=== PATIENT | male | born 1970 | race Caucasian/White ===

== ENCOUNTER 2017-05-08 19:46 | Emergency (ER) | payer OTHER, SELFPAY ==
[~2017-05-08] VITALS: Ht 190.5 cm; Wt 113.6 kg
[2017-05-08] MEDS ORDERED: CEPHALEXIN 500 MG CAP PO ONE (22:15)
[2017-05-08] MEDS ORDERED: methylPREDNISolone INJ 125 MG/2 ML VIAL (J2930) IM ONE (22:15)
[2017-05-08] MEDS ORDERED: PRED20TA PO (22:20)
[2017-05-08] MEDS ORDERED: LISI10TA4 PO (22:21)
[2017-05-08] MEDS ORDERED: KEFL500C17 PO (22:21)
[2017-05-08] MEDS ORDERED: LISINOPRIL 10 MG TAB PO ONE (22:30)
[2017-05-08 22:43] VITALS: BP 180/110
[2017-05-08 23:09] VITALS: BP 118/113
== END 2017-05-08 23:10 | disposition home or self-care (01) ==
LOC: M ED 19:46
DX: L03.032 Cellulitis of left toe (principal); L23.7 Allergic contact dermatitis due to plants, except food; I10 Essential (primary) hypertension; R00.2 Palpitations; F17.210 Nicotine dependence, cigarettes, uncomplicated
CPT/HCPCS: 96372; 99282; J2930

== ENCOUNTER 2017-10-07 13:48 | Emergency (ER) | payer MEDICAID, OTHER, SELFPAY ==
[2017-10-07] MEDS: KETOROLAC 30 MG/ML VIAL (J1885) IV (14:52)
[2017-10-07] MEDS: NS 1,000 ML IV (14:52)
[2017-10-07] MEDS: diphenhydrAMINE INJ 50MG/ML VIAL (J1200) IV (14:53)
[2017-10-07] MEDS: METOCLOPRAMIDE INJ 10MG/2ML VIAL (J2765) IV (14:56)
== END 2017-10-07 16:28 | disposition home or self-care (01) ==
LOC: M ED 13:48
DX: G44.209 Tension-type headache, unspecified, not intractable (principal); Z87.820 Personal history of traumatic brain injury; F17.200 Nicotine dependence, unspecified, uncomplicated
CPT/HCPCS: J1200

== ENCOUNTER 2017-10-08 13:00 | Emergency (ER) | payer MEDICAID | END 2017-10-08 15:26 | disposition left against medical advice (07) | LOC: M ED 13:00 | DX: Z53.21 Procedure and treatment not carried out due to patient leaving prior to being seen by health care provider (principal) ==

== ENCOUNTER 2017-10-08 15:54 | Emergency (ER) | payer MEDICAID ==
[2017-10-08] MEDS: diphenhydrAMINE INJ 50MG/ML VIAL (J1200) IV (18:44)
[2017-10-08] MEDS: METOCLOPRAMIDE 10 MG TAB PO (18:44)
[2017-10-08] MEDS: KETOROLAC 30 MG/ML VIAL (J1885) IV (18:45)
== END 2017-10-08 19:29 | disposition home or self-care (01) ==
LOC: M ED 15:54
DX: G44.209 Tension-type headache, unspecified, not intractable (principal); I10 Essential (primary) hypertension; F17.200 Nicotine dependence, unspecified, uncomplicated
CPT/HCPCS: J1200

== ENCOUNTER → 2017-10-13 | Outpatient (CLI) | payer MEDICAID | LOC: M LAB 14:12 | DX: I10 Essential (primary) hypertension (principal) | CPT/HCPCS: 93005 ==

== ENCOUNTER 2017-10-16 16:32 | Emergency (ER) | payer MEDICAID ==
[2017-10-16 18:48] LABS: BASO # 0.1 10^3/uL (0.0-0.2); BASO % 0.7 % (0.0-1.0); EOS # 0.4 10^3/uL (0.0-0.50); EOS % 3.4 % (0.0-3.0); HEMATOCRIT 52.4 % (42.0-52.0); HEMOGLOBIN 17.8 g/dl (14.0-18.0); IMMATURE GRANULOCYTE % 0.2 % (0-3.0); LYMPH # 3.4 10^3/uL (1.5-4.5); LYMPH % 29.1 % (24.0-44.0); MEAN CORPUSCULAR VOLUME 91.1 fl (80.0-96.0); MONO # 0.9 10^3/uL (0.0-0.8); MONO % 7.2 % (0.0-5.0); NEUTROPHILS % 59.4 % (36.0-66.0); PLATELET COUNT, AUTOMATED 259 10^3/uL (150-450); RED BLOOD COUNT 5.75 10^6/uL (4.30-6.10); RED CELL DISTRIBUTION WIDTH 13.2 % (11.5-14.5); WHITE BLOOD COUNT 11.8 10^3/uL (4.0-10.0)
[2017-10-16 19:29] LABS: ALBUMIN 4.5 GM/DL (3.2-5.2); ALBUMIN/GLOBULIN RATIO 1.13 (1.00-1.93); ALKALINE PHOSPHATASE 88 U/L (45-117); ALT/SGPT 41 U/L (12-78); ANION GAP 6 MEQ/L (8-16); AST/SGOT 16 U/L (7-37); BILIRUBIN,TOTAL 0.3 MG/DL (0.2-1.0); BLOOD UREA NITROGEN 18 MG/DL (7-18); CALCIUM LEVEL 9.7 MG/DL (8.5-10.1); CARBON DIOXIDE LEVEL 32 MEQ/L (21-32); CHLORIDE LEVEL 105 MEQ/L (98-107); CK-MB VALUE MASS 1.3 NG/ML (<3.6); CPK CREATINE PHOSPHOKINASE 130 U/L (39-308); CREATININE FOR GFR 1.07 MG/DL (0.70-1.30); GLOMERULAR FILTRATION RATE > 60.0 (>60); GLUCOSE, FASTING 95 MG/DL (70-100); POTASSIUM SERUM 4.1 MEQ/L (3.5-5.1); SODIUM LEVEL 143 MEQ/L (136-145); TOTAL PROTEIN 8.5 GM/DL (6.4-8.2); TROPONIN I < 0.02 NG/ML (< 0.10)
[2017-10-16 20:14] LABS: KETONE, URINE AUTO RFX NEGATIVE (NEGATIVE); LEUKOCYTE ESTERASE UR AUTO RFX NEGATIVE (NEGATIVE); NITRITE, URINE AUTO RFX NEGATIVE (NEGATIVE); RBC, URINE AUTO RFX 1 /HPF (0-3); SPECIFIC GRAVITY UR AUTO RFX 1.015 (1.002-1.035); SQUAM EPITHELIAL CELL UR AURFX 0 /HPF (0-6); WBC, URINE AUTO RFX 1 /HPF (0-3)
[2017-10-16] MEDS ORDERED: hydroCHLOROthiazide 25 MG TAB PO (21:00)
[2017-10-16] MEDS ORDERED: LISINOPRIL 20 MG TAB PO (21:00)
== END 2017-10-16 21:08 | disposition home or self-care (01) ==
LOC: M ED 16:32
DX: I10 Essential (primary) hypertension (principal); F17.200 Nicotine dependence, unspecified, uncomplicated; Z79.899 Other long term (current) drug therapy; Z79.891 Long term (current) use of opiate analgesic
CPT/HCPCS: 71046

== ENCOUNTER → 2018-03-09 | Outpatient (CLI) | payer OTHER | LOC: M RAD 12:53 | DX: M53.3 Sacrococcygeal disorders, not elsewhere classified (principal) | CPT/HCPCS: 72220 ==

== ENCOUNTER 2018-07-13 20:23 | Emergency (ER) | payer OTHER ==
[~2018-07-13] VITALS: Ht 190.5 cm; Wt 112.3 kg
[~2018-07-13 20:23] MED LIST: HYDR12.55 PO; KEFL500C17 PO; KETO10TAB PO; LISI10TA4 PO; LISI20TA3 PO; PRED20TA PO; REGL10TA6 PO; VERA40TA PO
[2018-07-13 20:56] LABS: BASO # 0.1 10^3/uL (0.0-0.2); EOS # 0.6 10^3/uL (0.0-0.50); EOS % 5.9 % (0.0-3.0); HEMATOCRIT 50.9 % (42.0-52.0); HEMOGLOBIN 17.2 g/dl (13.5-17.5); LYMPH # 3.4 10^3/uL (1.5-4.5); MEAN CORPUSCULAR HEMOGLOBIN 30.2 pg (27.0-33.0); MEAN CORPUSCULAR HGB CONC 33.8 g/dl (32.0-36.5); MEAN CORPUSCULAR VOLUME 89.5 fl (80.0-96.0); MONO # 0.6 10^3/uL (0.0-0.8); MONO % 6.5 % (0.0-5.0); NEUTROPHILS # 4.9 10^3/uL (1.8-7.7); NEUTROPHILS % 51.4 % (36.0-66.0); PLATELET COUNT, AUTOMATED 226 10^3/uL (150-450); RED BLOOD COUNT 5.69 10^6/uL (4.30-6.10); WHITE BLOOD COUNT 9.6 10^3/uL (4.0-10.0)
[2018-07-13] MEDS ORDERED: IPRATROPIUM 0.5MG/ALBUTEROL 2.5MG INH SOL UD 3ML (DUONEB)(J7620) NEB ONE (21:00)
[2018-07-13 21:44] LABS: BLOOD UREA NITROGEN 13 MG/DL (7-18); CALCIUM LEVEL 8.8 MG/DL (8.5-10.1); CARBON DIOXIDE LEVEL 30 MEQ/L (21-32); CHLORIDE LEVEL 104 MEQ/L (98-107); CPK CREATINE PHOSPHOKINASE 105 U/L (39-308); CREATININE FOR GFR 1.08 MG/DL (0.70-1.30); GLOMERULAR FILTRATION RATE > 60.0 (>60); GLUCOSE, FASTING 109 MG/DL (70-100); MB/CK RELATIVE INDEX 0.95 (< OR =4); POTASSIUM SERUM 4.1 MEQ/L (3.5-5.1); SODIUM LEVEL 140 MEQ/L (136-145); TROPONIN I < 0.02 NG/ML (< 0.10)
[2018-07-13 22:30] VITALS: BP 142/92
[2018-07-13] MEDS ORDERED: PRED20TA PO (22:36)
[2018-07-13] MEDS ORDERED: PROAAER10 INH (22:36)
[2018-07-13] MEDS ORDERED: predniSONE 20 MG TAB PO ONE (22:45)
--- NOTE | 2018-07-14 02:56 | REP ---
Clinical: Acute chest pain . Comparison: 10/16/2017 . Findings: The mediastinum and cardiac silhouette are stable and within normal limits for portable technique. The lung henderson are clear without acute consolidation, effusion, or pneumothorax. Skeletal structures are intact. Impression: No acute cardiopulmonary process appreciated. Electronically Signed by Gabriel Manuel MD 07/14/2018 02:47 A
--- NOTE | 2018-07-14 12:56 | ECGEPIP ---
Stationary ECG Study [facility] - ED Test Date: 2018-07-13 Pat Name: JESUS DIAZ Department: Room: - Gender: M [employer]: af : 1970 Requested By: DARRYN Milner Order Number: [id number] Reading MD: Madyson Delgado Measurements Intervals [place] Rate: 106 P: 70 CT: 133 QRS: 57 QRSD: 110 T: 58 QT: 331 QTc: 441 Interpretive Statements SINUS TACHYCARDIA POSSIBLE LEFT ATRIAL ENLARGEMENT ABNORMAL RHYTHM ECG SIMILAR 10/16/17 Electronically Signed On 07-14-2018 12:56:08 EST by Madyson Delgado
== END 2018-07-13 22:48 | disposition home or self-care (01) ==
LOC: M ED 20:23
DX: J45.901 Unspecified asthma with (acute) exacerbation (principal); I10 Essential (primary) hypertension; Z79.899 Other long term (current) drug therapy; F17.210 Nicotine dependence, cigarettes, uncomplicated

== ENCOUNTER → 2018-10-28 | Outpatient (REF) | payer OTHER, MEDICAID ==
[~2018-10-28] MED LIST changes: +PROAAER10 INH
[2018-10-28 14:07] LABS: ALBUMIN 4.5 GM/DL (3.2-5.2); ALT/SGPT 58 U/L (12-78); BILIRUBIN,TOTAL 0.4 MG/DL (0.2-1.0); BLOOD UREA NITROGEN 18 MG/DL (7-18); CALCIUM LEVEL 9.4 MG/DL (8.5-10.1); CARBON DIOXIDE LEVEL 32 MEQ/L (21-32); CHLORIDE LEVEL 102 MEQ/L (98-107); CHOLESTEROL LEVEL 169 MG/DL (<200); CHOLESTEROL RISK RATIO 4.447 (<5); CREATININE FOR GFR 0.98 MG/DL (0.70-1.30); GLOMERULAR FILTRATION RATE > 60.0 (>60); GLUCOSE, FASTING 94 MG/DL (70-100); HDL CHOLESTEROL 38 MG/DL (>40); LDL CHOLESTEROL 105 MG/DL (<100); NON-HDL-C 131 MG/DL; POTASSIUM SERUM 3.9 MEQ/L (3.5-5.1); SODIUM LEVEL 140 MEQ/L (136-145); TOTAL PROTEIN 7.9 GM/DL (6.4-8.2); TRIGLYCERIDES LEVEL 130 MG/DL (<150)
[2018-10-28 14:39] LABS: HEMOGLOBIN A1c 6.3 %
[2018-10-28 15:59] LABS: BASO % 0.3 % (0.0-1.0); EOS # 0.1 10^3/uL (0.0-0.50); EOS % 0.5 % (0.0-3.0); HEMATOCRIT 53.6 % (42.0-52.0); HEMOGLOBIN 17.8 g/dl (13.5-17.5); LYMPH # 3.8 10^3/uL (1.5-4.5); LYMPH % 34.8 % (24.0-44.0); MEAN CORPUSCULAR HEMOGLOBIN 30.4 pg (27.0-33.0); MEAN CORPUSCULAR HGB CONC 33.2 g/dl (32.0-36.5); MEAN CORPUSCULAR VOLUME 91.5 fl (80.0-96.0); MONO % 8.6 % (0.0-5.0); NEUTROPHILS # 6.1 10^3/uL (1.8-7.7); NEUTROPHILS % 55.6 % (36.0-66.0); PLATELET COUNT, AUTOMATED 253 10^3/uL (150-450); RED BLOOD COUNT 5.86 10^6/uL (4.30-6.10)
== END ==
LOC: M LAB REF 12:38
PROVIDERS: ATTEND Nurse Practitioner Family
DX: Z13.9 Encounter for screening, unspecified (principal)

== ENCOUNTER 2019-01-15 13:52 | Emergency (ER) | payer MEDICAID, OTHER ==
[~2019-01-15] VITALS: Ht 188 cm; Wt 117.2 kg
[2019-01-15 13:53] VITALS: BP 154/96
== END 2019-01-15 18:45 | disposition left against medical advice (07) ==
LOC: M ED 13:52
DX: Z53.29 Procedure and treatment not carried out because of patient's decision for other reasons (principal)

== ENCOUNTER → 2019-03-02 | Outpatient (REF) | payer OTHER ==
[2019-03-02 14:42] LABS: BASO # 0.1 10^3/uL (0.0-0.2); BASO % 0.8 % (0.0-1.0); EOS # 0.7 10^3/uL (0.0-0.50); EOS % 8.3 % (0.0-3.0); HEMATOCRIT 51.8 % (42.0-52.0); HEMOGLOBIN 17.5 g/dl (13.5-17.5); LYMPH # 2.7 10^3/uL (1.5-4.5); LYMPH % 34.1 % (24.0-44.0); MEAN CORPUSCULAR HEMOGLOBIN 30.9 pg (27.0-33.0); MEAN CORPUSCULAR HGB CONC 33.8 g/dl (32.0-36.5); MEAN CORPUSCULAR VOLUME 91.4 fl (80.0-96.0); MONO # 0.7 10^3/uL (0.0-0.8); NEUTROPHILS # 3.8 10^3/uL (1.8-7.7); NEUTROPHILS % 47.5 % (36.0-66.0); PLATELET COUNT, AUTOMATED 249 10^3/uL (150-450); RED BLOOD COUNT 5.67 10^6/uL (4.30-6.10); WHITE BLOOD COUNT 7.9 10^3/uL (4.0-10.0)
[2019-03-02 14:48] LABS: ALBUMIN 3.9 GM/DL (3.2-5.2); ALT/SGPT 33 U/L (12-78); BILIRUBIN,TOTAL 0.4 MG/DL (0.2-1.0); BLOOD UREA NITROGEN 15 MG/DL (7-18); CALCIUM LEVEL 8.8 MG/DL (8.5-10.1); CARBON DIOXIDE LEVEL 26 MEQ/L (21-32); CHLORIDE LEVEL 110 MEQ/L (98-107); CHOLESTEROL LEVEL 140 MG/DL (<200); CHOLESTEROL RISK RATIO 4.242 (<5); CREATININE FOR GFR 0.98 MG/DL (0.70-1.30); GLOMERULAR FILTRATION RATE > 60.0 (>56); GLUCOSE, FASTING 103 MG/DL (70-100); HDL CHOLESTEROL 33 MG/DL (>40); LDL CHOLESTEROL 94 MG/DL (<100); NON-HDL-C 107 MG/DL; POTASSIUM SERUM 4.4 MEQ/L (3.5-5.1); SODIUM LEVEL 142 MEQ/L (136-145); TOTAL PROTEIN 7.1 GM/DL (6.4-8.2); TRIGLYCERIDES LEVEL 66 MG/DL (<150)
[2019-03-02 14:57] LABS: HEMOGLOBIN A1c 6.5 %
== END ==
LOC: M LAB REF 13:38
PROVIDERS: ATTEND Nurse Practitioner Family
DX: I10 Essential (primary) hypertension (principal); R73.03 Prediabetes

== ENCOUNTER → 2019-11-15 | Outpatient (REF) | payer OTHER, MEDICAID ==
[~2019-11-15] MED LIST changes: +LISI20TA20 PO; -LISI20TA3 PO
[2019-11-15 18:55] LABS: ALBUMIN 4.3 GM/DL (3.2-5.2); ALT/SGPT 59 U/L (12-78); BILIRUBIN,TOTAL 0.5 MG/DL (0.2-1.0); BLOOD UREA NITROGEN 13 MG/DL (7-18); CALCIUM LEVEL 9.2 MG/DL (8.5-10.1); CARBON DIOXIDE LEVEL 26 MEQ/L (21-32); CHLORIDE LEVEL 106 MEQ/L (98-107); CREATININE FOR GFR 1.01 MG/DL (0.70-1.30); GLOMERULAR FILTRATION RATE > 60.0 (>56); GLUCOSE, FASTING 103 MG/DL (70-100); POTASSIUM SERUM 4.1 MEQ/L (3.5-5.1); SODIUM LEVEL 138 MEQ/L (136-145)
[2019-11-15 18:56] LABS: BASO # 0.1 10^3/uL (0.0-0.2); BASO % 0.6 % (0.0-1.0); EOS # 0.3 10^3/uL (0.0-0.5); EOS % 3.4 % (0.0-3.0); HEMATOCRIT 51.3 % (42.0-52.0); HEMOGLOBIN 17.4 g/dl (13.5-17.5); LYMPH # 2.8 10^3/uL (1.5-5.0); LYMPH % 34.3 % (24.0-44.0); MEAN CORPUSCULAR HEMOGLOBIN 31.1 pg (27.0-33.0); MEAN CORPUSCULAR HGB CONC 33.9 g/dl (32.0-36.5); MEAN CORPUSCULAR VOLUME 91.8 fl (80.0-96.0); MONO # 0.6 10^3/uL (0.0-0.8); MONO % 7.2 % (0.0-5.0); NEUTROPHILS # 4.4 10^3/uL (1.5-8.5); NEUTROPHILS % 54.4 % (36.0-66.0); PLATELET COUNT, AUTOMATED 235 10^3/uL (150-450); RED BLOOD COUNT 5.59 10^6/uL (4.30-6.10)
[2019-11-15 19:23] LABS: HEMOGLOBIN A1c 6.4 %
== END ==
LOC: M LAB REF 17:29
PROVIDERS: ATTEND Nurse Practitioner Family
DX: E11.9 Type 2 diabetes mellitus without complications (principal); Z13.9 Encounter for screening, unspecified; Z72.0 Tobacco use; E66.09 Other obesity due to excess calories; R35.8 Other polyuria; I10 Essential (primary) hypertension

== ENCOUNTER → 2020-03-07 | Outpatient (REF) | payer OTHER, MEDICAID ==
[2020-04-06 19:48] LABS: BASO # 0.1 10^3/uL (0.0-0.2); EOS # 0.5 10^3/uL (0.0-0.5); EOS % 5.2 % (0.0-3.0); HEMATOCRIT 53.1 % (42.0-52.0); HEMOGLOBIN 17.6 g/dl (13.5-17.5); LYMPH % 34.6 % (24.0-44.0); MEAN CORPUSCULAR HEMOGLOBIN 30.5 pg (27.0-33.0); MEAN CORPUSCULAR HGB CONC 33.1 g/dl (32.0-36.5); MONO # 0.7 10^3/uL (0.0-0.8); MONO % 7.9 % (0.0-5.0); NEUTROPHILS # 4.5 10^3/uL (1.5-8.5); NEUTROPHILS % 51.1 % (36.0-66.0); PLATELET COUNT, AUTOMATED 240 10^3/uL (150-450); RED BLOOD COUNT 5.77 10^6/uL (4.30-6.10); WHITE BLOOD COUNT 8.7 10^3/uL (4.0-10.0)
[2020-04-20 13:45] LABS: BLOOD UREA NITROGEN 13 MG/DL (7-18); CARBON DIOXIDE LEVEL 29 MEQ/L (21-32); CHLORIDE LEVEL 108 MEQ/L (98-107); CREATININE FOR GFR 1.16 MG/DL (0.70-1.30); GLOMERULAR FILTRATION RATE > 60.0 (>56); GLUCOSE, FASTING 121 MG/DL (70-100); POTASSIUM SERUM 4.7 MEQ/L (3.5-5.1); SODIUM LEVEL 141 MEQ/L (136-145)
[2020-04-20 13:46] LABS: ALT/SGPT 54 U/L (12-78); BILIRUBIN,TOTAL 0.3 MG/DL (0.2-1.0); CALCIUM LEVEL 8.9 MG/DL (8.5-10.1); CHOLESTEROL LEVEL 175 MG/DL (<200); CHOLESTEROL RISK RATIO 5.645 (<5); HDL CHOLESTEROL 31 MG/DL (>40); LDL CHOLESTEROL 129 MG/DL (<100); NON-HDL-C 144 MG/DL; TOTAL PROTEIN 7.5 GM/DL (6.4-8.2); TRIGLYCERIDES LEVEL 76 MG/DL (<150)
== END ==
LOC: M LAB REF 09:30
PROVIDERS: ATTEND Nurse Practitioner Family
DX: E11.9 Type 2 diabetes mellitus without complications (principal); Z13.9 Encounter for screening, unspecified; E66.09 Other obesity due to excess calories; F17.210 Nicotine dependence, cigarettes, uncomplicated; I10 Essential (primary) hypertension

== ENCOUNTER → 2020-04-10 | Outpatient (CLI) | payer OTHER ==
--- NOTE | 2020-04-27 11:14 | REP ---
LIMITED ABDOMINAL ULTRASOUND CLINICAL: Left upper quadrant tenderness. TECHNIQUE: Real-time howell scale ultrasound examination using curved array transducer. FINDINGS: The spleen is normal in contour, size, and echogenicity measuring 9.1 x 3.5 x 8.9 cm (splenic index equals 283). No focal splenic lesions are identified. The left kidney is normal in reniform shape and appearance measuring 12.4 x 6.3 x 4.8 cm without hydronephrosis, cystic or renal mass lesion. Small nonobstructive intrarenal calculi cannot be excluded. IMPRESSION: * Normal spleen. * Relatively normal left kidney without hydronephrosis although small nonobstructing intrarenal calculus cannot be excluded. MTDD
== END ==
LOC: M RAD 06:25
PROVIDERS: ATTEND Nurse Practitioner Family
DX: R10.822 Left upper quadrant rebound abdominal tenderness (principal)

== ENCOUNTER → 2020-06-06 | Outpatient (REF) | payer OTHER ==
[2020-06-06 13:26] LABS: BASO # 0.1 10^3/uL (0.0-0.2); BASO % 0.7 % (0.0-1.0); EOS # 0.4 10^3/uL (0.0-0.5); EOS % 4.8 % (0.0-3.0); HEMATOCRIT 56.4 % (42.0-52.0); HEMOGLOBIN 18.9 g/dl (13.5-17.5); LYMPH # 2.7 10^3/uL (1.5-5.0); LYMPH % 29.9 % (24.0-44.0); MEAN CORPUSCULAR HEMOGLOBIN 30.6 pg (27.0-33.0); MEAN CORPUSCULAR HGB CONC 33.5 g/dl (32.0-36.5); MEAN CORPUSCULAR VOLUME 91.3 fl (80.0-96.0); MONO # 0.6 10^3/uL (0.0-0.8); MONO % 7.1 % (0.0-5.0); NEUTROPHILS # 5.2 10^3/uL (1.5-8.5); NEUTROPHILS % 57.3 % (36.0-66.0); PLATELET COUNT, AUTOMATED 225 10^3/uL (150-450); RED BLOOD COUNT 6.18 10^6/uL (4.30-6.10)
[2020-06-06 13:40] LABS: ALBUMIN 4.1 GM/DL (3.2-5.2); ALT/SGPT 38 U/L (12-78); BILIRUBIN,TOTAL 0.6 MG/DL (0.2-1.0); BLOOD UREA NITROGEN 21 MG/DL (7-18); CALCIUM LEVEL 9.6 MG/DL (8.5-10.1); CARBON DIOXIDE LEVEL 28 MEQ/L (21-32); CHLORIDE LEVEL 103 MEQ/L (98-107); CHOLESTEROL LEVEL 182 MG/DL (<200); CHOLESTEROL RISK RATIO 5.055 (<5); CREATININE FOR GFR 1.03 MG/DL (0.70-1.30); GLOMERULAR FILTRATION RATE > 60.0 (>56); GLUCOSE, FASTING 112 MG/DL (70-100); HDL CHOLESTEROL 36 MG/DL (>40); LDL CHOLESTEROL 129 MG/DL (<100); NON-HDL-C 146 MG/DL; POTASSIUM SERUM 4.4 MEQ/L (3.5-5.1); SODIUM LEVEL 138 MEQ/L (136-145); TOTAL 25(OH) VITAMIN D 72.6 NG/ML (30.0-100.0); TOTAL PROTEIN 7.9 GM/DL (6.4-8.2); TRIGLYCERIDES LEVEL 87 MG/DL (<150)
[2020-06-06 14:16] LABS: HEMOGLOBIN A1c 5.9 %
== END ==
LOC: M LAB REF 12:38
PROVIDERS: ATTEND Nurse Practitioner Family
DX: R00.2 Palpitations (principal); R00.0 Tachycardia, unspecified; E55.9 Vitamin D deficiency, unspecified; E11.9 Type 2 diabetes mellitus without complications; E66.09 Other obesity due to excess calories; F17.210 Nicotine dependence, cigarettes, uncomplicated; I10 Essential (primary) hypertension

== ENCOUNTER → 2020-09-12 | Outpatient (REF) | payer OTHER ==
[~2020-09-12] MED LIST changes: +LISI10TA22 PO; -LISI10TA4 PO
[2020-09-12 17:03] LABS: BASO # 0.1 10^3/uL (0.0-0.2); BASO % 0.8 % (0.0-1.0); EOS # 0.4 10^3/uL (0.0-0.5); EOS % 5.2 % (0.0-3.0); HEMATOCRIT 55.4 % (42.0-52.0); HEMOGLOBIN 18.2 g/dl (13.5-17.5); LYMPH # 2.4 10^3/uL (1.5-5.0); LYMPH % 33.1 % (24.0-44.0); MEAN CORPUSCULAR HEMOGLOBIN 29.9 pg (27.0-33.0); MEAN CORPUSCULAR HGB CONC 32.9 g/dl (32.0-36.5); MONO # 0.7 10^3/uL (0.0-0.8); NEUTROPHILS # 3.8 10^3/uL (1.5-8.5); NEUTROPHILS % 51.8 % (36.0-66.0); PLATELET COUNT, AUTOMATED 215 10^3/uL (150-450); RED BLOOD COUNT 6.09 10^6/uL (4.30-6.10); WHITE BLOOD COUNT 7.3 10^3/uL (4.0-10.0)
[2020-09-12 17:28] LABS: HEMOGLOBIN A1c 5.8 %
[2020-09-12 17:39] LABS: BILIRUBIN,TOTAL 0.5 MG/DL (0.2-1.0); CALCIUM LEVEL 10.1 MG/DL (8.5-10.1); CHOLESTEROL RISK RATIO 4.388 (<5); CREATININE FOR GFR 1.43 MG/DL (0.70-1.30); FREE T4 0.99 NG/DL (0.76-1.46); GLOMERULAR FILTRATION RATE 55.5 (>56); POTASSIUM SERUM 4.5 MEQ/L (3.5-5.1); THYROID STIMULATING HORMONE 1.63 uIU/ML (0.358-3.740); TOTAL PROTEIN 7.6 GM/DL (6.4-8.2)
[2020-09-12 17:41] LABS: TOTAL 25(OH) VITAMIN D 42.4 NG/ML (30.0-100.0)
== END ==
LOC: M LAB REF 16:22
PROVIDERS: ATTEND Nurse Practitioner Family
DX: E66.9 Obesity, unspecified (principal); F17.200 Nicotine dependence, unspecified, uncomplicated; E55.9 Vitamin D deficiency, unspecified

== ENCOUNTER → 2020-12-26 | Outpatient (REF) | payer OTHER ==
[2020-12-26 18:50] LABS: BASO # 0.1 10^3/uL (0.0-0.2); BASO % 0.9 % (0.0-1.0); EOS # 0.5 10^3/uL (0.0-0.5); EOS % 5.4 % (0.0-3.0); HEMATOCRIT 52.7 % (42.0-52.0); HEMOGLOBIN 16.9 g/dl (13.5-17.5); LYMPH # 3.2 10^3/uL (1.5-5.0); LYMPH % 35.9 % (24.0-44.0); MEAN CORPUSCULAR HEMOGLOBIN 30.5 pg (27.0-33.0); MEAN CORPUSCULAR HGB CONC 32.1 g/dl (32.0-36.5); MONO # 0.8 10^3/uL (0.0-0.8); MONO % 9.1 % (2.0-8.0); NEUTROPHILS # 4.3 10^3/uL (1.5-8.5); NEUTROPHILS % 48.4 % (36.0-66.0); PLATELET COUNT, AUTOMATED 251 10^3/uL (150-450); RED BLOOD COUNT 5.55 10^6/uL (4.30-6.10); WHITE BLOOD COUNT 8.9 10^3/uL (4.0-10.0)
[2020-12-26 19:19] LABS: ALBUMIN 3.9 GM/DL (3.2-5.2); ALT/SGPT 39 U/L (12-78); BILIRUBIN,TOTAL 0.3 MG/DL (0.2-1.0); BLOOD UREA NITROGEN 15 MG/DL (7-18); CALCIUM LEVEL 9.5 MG/DL (8.5-10.1); CARBON DIOXIDE LEVEL 31 MEQ/L (21-32); CHLORIDE LEVEL 109 MEQ/L (98-107); CHOLESTEROL LEVEL 176 MG/DL (<200); CHOLESTEROL RISK RATIO 5.028 (<5); CREATININE FOR GFR 1.12 MG/DL (0.70-1.30); FREE T4 0.73 NG/DL (0.76-1.46); GLOMERULAR FILTRATION RATE > 60.0 (>56); GLUCOSE, FASTING 102 MG/DL (70-100); HDL CHOLESTEROL 35 MG/DL (>40); LDL CHOLESTEROL 114 MG/DL (<100); NON-HDL-C 141 MG/DL; POTASSIUM SERUM 5.6 MEQ/L (3.5-5.1); SODIUM LEVEL 145 MEQ/L (136-145); TOTAL 25(OH) VITAMIN D 21.6 NG/ML (30.0-100.0); TRIGLYCERIDES LEVEL 137 MG/DL (<150)
== END ==
LOC: M LAB REF 17:20
PROVIDERS: ATTEND Nurse Practitioner Family
DX: I10 Essential (primary) hypertension (principal); R73.03 Prediabetes; E78.5 Hyperlipidemia, unspecified; E66.9 Obesity, unspecified

== ENCOUNTER → 2021-08-27 | Outpatient (CLI) | payer OTHER ==
[~2021-08-27] MED LIST changes: -LISI20TA20 PO; +LISI20TA37 PO
[2021-08-27 11:50] LABS: HEMATOCRIT 51.6 % (42.0-52.0); HEMOGLOBIN 17.1 g/dl (13.5-17.5); MEAN CORPUSCULAR HEMOGLOBIN 29.8 pg (27.0-33.0); MEAN CORPUSCULAR HGB CONC 33.1 g/dl (32.0-36.5); MEAN CORPUSCULAR VOLUME 90.1 fl (80.0-96.0); PLATELET COUNT, AUTOMATED 221 10^3/uL (150-450); RED BLOOD COUNT 5.73 10^6/uL (4.30-6.10); WHITE BLOOD COUNT 7.2 10^3/uL (4.0-10.0)
[2021-08-27 12:16] LABS: ALBUMIN 3.6 GM/DL (3.2-5.2); ALT/SGPT 47 U/L (12-78); BILIRUBIN,TOTAL 0.3 MG/DL (0.2-1.0); BLOOD UREA NITROGEN 19 MG/DL (7-18); CALCIUM LEVEL 8.8 MG/DL (8.5-10.1); CARBON DIOXIDE LEVEL 33 MEQ/L (21-32); CHLORIDE LEVEL 103 MEQ/L (98-107); CHOLESTEROL LEVEL 180 MG/DL (<200); CHOLESTEROL RISK RATIO 4.736 (<5); CREATININE FOR GFR 0.97 MG/DL (0.70-1.30); GLOMERULAR FILTRATION RATE > 60.0 (>56); GLUCOSE, FASTING 135 MG/DL (70-100); HDL CHOLESTEROL 38 MG/DL (>40); LDL CHOLESTEROL 118 MG/DL (<100); NON-HDL-C 142 MG/DL; POTASSIUM SERUM 4.2 MEQ/L (3.5-5.1); SODIUM LEVEL 139 MEQ/L (136-145); TOTAL PROTEIN 7.2 GM/DL (6.4-8.2); TRIGLYCERIDES LEVEL 118 MG/DL (<150)
[2021-08-27 12:25] LABS: MALB URINE SIEMENS 32.4 MG/L; MAU/CREAT RATIO 14.8 MCG/MG (0.0-30.0)
[2021-08-27 12:36] LABS: TOTAL 25(OH) VITAMIN D 20.6 NG/ML (30.0-100.0)
[2021-08-27 12:47] LABS: HEMOGLOBIN A1c 6.2 %
== END ==
LOC: M EKG 11:05
PROVIDERS: ATTEND Physician Assistant
DX: I10 Essential (primary) hypertension (principal); E78.5 Hyperlipidemia, unspecified; E66.9 Obesity, unspecified; E11.9 Type 2 diabetes mellitus without complications

== ENCOUNTER → 2023-04-30 | Outpatient (REF) ==
[~2023-04-30] MED LIST changes: +AMLO1TAB25 PO; +CHLO125TA PO
== END ==
LOC: M PLAIMG 15:11
PROVIDERS: ATTEND Internal Medicine
DX: M25.561 Pain in right knee (principal)

== ENCOUNTER 2024-05-18 12:19 | Emergency (ER) | payer OTHER ==
[~2024-05-18] VITALS: Ht 190.5 cm; Wt 129.6 kg
[2024-05-18] MEDS: predniSONE 20 MG TAB PO ONE (16:44)
[2024-05-18] MEDS: methocarbamoL 500 MG TAB PO ONE (16:44)
[2024-05-18] MEDS: KETOROLAC 60MG 2ML VIAL IM ONE (16:44)
[2024-05-18] MEDS ORDERED: METH-1164 PO (18:19)
[2024-05-18] MEDS ORDERED: IBUP-1022 PO (18:19)
[2024-05-18] MEDS ORDERED: PRED20TA PO (18:19)
[2024-05-18] MEDS: ACETAMINOPHEN *IV* 1,000 MG in IV 1 EA IV ONE (18:50)
[2024-05-18] MEDS: MORPHINE 4 MG/ML 1ML VIAL IV ONE (22:18)
[2024-05-18] MEDS: NICOTINE 21MG/24HR 1 EA TRANSDERMAL TD ONE (22:28)
[2024-05-19] MEDS ORDERED: HOME MED LIST COMPLETE! XX SCH (00:50)
[2024-05-19 00:54] VITALS: BP 159/90; TEMP 97.4; O2SAT 97
== END 2024-05-19 00:58 | disposition short-term general hospital (02) ==
LOC: M ED 12:19
DX: M53.86 Other specified dorsopathies, lumbar region (principal); M51.370 Other intervertebral disc degeneration, lumbosacral region with discogenic back pain only; I10 Essential (primary) hypertension; Z87.820 Personal history of traumatic brain injury; F17.200 Nicotine dependence, unspecified, uncomplicated
CPT/HCPCS: 72110; 72148; 96361; 96372; 96374; 99284; J0131; J1885; J7512

== ENCOUNTER → 2024-05-28 | Outpatient (REF) | payer OTHER ==
[~2024-05-28] MED LIST changes: +IBUP-1022 PO; +METH-1164 PO
[2024-05-28 13:57] LABS: ALKALINE PHOSPHATASE 70 U/L (40-129); ALT/SGPT 64 U/L (7.0-40); AST/SGOT 14 U/L (<34); BILIRUBIN,TOTAL 0.4 MG/DL (0.3-1.2); BLOOD UREA NITROGEN 25 MG/DL (9-23); CALCIUM LEVEL 10.5 MG/DL (8.5-10.1); CARBON DIOXIDE LEVEL 35 MMOL/L (20-31); CHLORIDE LEVEL 101 MMOL/L (98-107); CHOLESTEROL LEVEL 177 MG/DL (<200); CREATININE FOR GFR 1.03 MG/DL (0.70-1.30); GLOMERULAR FILTRATION RATE > 60.0 (>56); GLUCOSE, FASTING 139 MG/DL (60-100); HDL CHOLESTEROL 40.2 MG/DL (>40); LDL CHOLESTEROL 99.8 MG/DL (<100); NON-HDL-C 136.8 MG/DL; SODIUM LEVEL 143 MMOL/L (136-145); TOTAL PROTEIN 7.8 G/DL (5.7-8.2); TRIGLYCERIDES LEVEL 185 MG/DL (<150)
[2024-05-28 14:01] LABS: HEMATOCRIT 56.6 % (42.0-52.0); HEMOGLOBIN 18.2 g/dl (13.5-17.5); MEAN CORPUSCULAR HEMOGLOBIN 30.4 pg (27.0-33.0); MEAN CORPUSCULAR HGB CONC 32.2 g/dl (32.0-36.5); MEAN CORPUSCULAR VOLUME 94.6 fl (80.0-96.0); PLATELET COUNT, AUTOMATED 224 10^3/uL (150-450); RED BLOOD COUNT 5.98 10^6/uL (4.30-6.10); WHITE BLOOD COUNT 10.1 10^3/uL (4.0-10.0)
[2024-05-28 14:18] LABS: HEMOGLOBIN A1c 7.5 % (4.0-6.0)
== END ==
LOC: M LAB REF 13:04
PROVIDERS: ATTEND Physician Assistant
DX: E11.9 Type 2 diabetes mellitus without complications (principal)

== ENCOUNTER 2024-07-16 16:36 | Emergency (ER) | payer OTHER ==
[~2024-07-16] VITALS: Ht 190.5 cm; Wt 132.3 kg
[2024-07-16] MEDS: KETOROLAC 30 MG/ML 1ML VIAL IM ONE (20:17)
[2024-07-16] MEDS: ACETAMINOPHEN 500 MG TAB PO ONE (20:17)
[2024-07-16] MEDS: LIDOCAINE 5% (LIDODERM) PATCH TD ONE (20:18)
[2024-07-16] MEDS ORDERED: MEDR4PAK PO (21:02)
[2024-07-16] MEDS: diazePAM 5MG TABLET PO ONE (21:20)
[2024-07-16] MEDS: MORPHINE 10 MG/ML 1ML VIAL IM ONE (22:15)
[2024-07-16] MEDS ORDERED: cefTRIAXone SOD 2 GM in DEXTROSE 5% (D5W) ADV/MINI-BAG 50 ML IV ONE (22:50)
[2024-07-16 22:56] VITALS: BP 168/102; TEMP 97.9; O2SAT 100
== END 2024-07-17 01:26 | disposition home or self-care (01) ==
LOC: M ED 16:36
DX: M54.50 Low back pain, unspecified (principal); M25.552 Pain in left hip; F17.210 Nicotine dependence, cigarettes, uncomplicated; M47.816 Spondylosis without myelopathy or radiculopathy, lumbar region; W00.0XXA Fall on same level due to ice and snow, initial encounter; Y92.9 Unspecified place or not applicable; Y93.9 Activity, unspecified; Y99.9 Unspecified external cause status
CPT/HCPCS: 72110; 73502; 96372; 99283; J1885

== ENCOUNTER 2024-07-18 19:16 | Inpatient (IN) | payer OTHER ==
[~2024-07-18] VITALS: Ht 190.5 cm; Wt 129.0 kg
[~2024-07-18 19:16] MED LIST changes: +MEDR4PAK PO
[2024-07-18] MEDS: CYCLOBENZAPRINE 5MG TABLET PO ONE (19:55)
[2024-07-18] MEDS: KETOROLAC 30 MG/ML 1ML VIAL IM ONE (19:55)
[2024-07-18] MEDS: diazePAM 5MG TABLET PO ONE (19:55)
[2024-07-19] MEDS: MORPHINE 10 MG/ML 1ML VIAL IM ONE (02:09)
[2024-07-19 02:47] LABS: BASO % 0.4 % (0.0-1.0); EOS # 0.2 10^3/uL (0.0-0.5); EOS % 1.9 % (0.0-3.0); HEMATOCRIT 51.2 % (42.0-52.0); LYMPH # 1.8 10^3/uL (1.5-5.0); LYMPH % 22.9 % (24.0-44.0); MEAN CORPUSCULAR HEMOGLOBIN 30.6 pg (27.0-33.0); MEAN CORPUSCULAR HGB CONC 33.2 g/dl (32.0-36.5); MEAN CORPUSCULAR VOLUME 92.3 fl (80.0-96.0); MONO # 0.6 10^3/uL (0.0-0.8); NEUTROPHILS # 5.4 10^3/uL (1.5-8.5); NEUTROPHILS % 67.7 % (36.0-66.0); PLATELET COUNT, AUTOMATED 232 10^3/uL (150-450); RED BLOOD COUNT 5.55 10^6/uL (4.30-6.10)
[2024-07-19 02:51] LABS: ERYTHROCYTE SEDIMENTATION RATE 26 mm/hr (0-20)
[2024-07-19 03:10] LABS: ETHYL ALCOHOL (ETHANOL) < 0.003 % (0.000-0.010)
[2024-07-19 03:12] LABS: C REACTIVE PROTEIN QUANTITATIV 0.52 MG/DL (<1.0)
[2024-07-19 03:24] LABS: BLOOD UREA NITROGEN 15 MG/DL (9-23); CALCIUM LEVEL 9.2 MG/DL (8.5-10.1); CARBON DIOXIDE LEVEL 28 MMOL/L (20-31); CHLORIDE LEVEL 105 MMOL/L (98-107); GLOMERULAR FILTRATION RATE > 60.0 (>56); GLUCOSE, FASTING 141 MG/DL (60-100); POTASSIUM SERUM 4.3 MMOL/L (3.5-5.1); SODIUM LEVEL 141 MMOL/L (136-145)
[2024-07-19] MEDS ORDERED: DICL25TA11 PO (04:27)
[2024-07-19] MEDS ORDERED: METF-838 PO (04:27)
[2024-07-19] MEDS ORDERED: CYCL-707 PO (04:27)
[2024-07-19] MEDS ORDERED: METH-1164 PO (04:27)
[2024-07-19] MEDS ORDERED: ATOR1TAB19 PO (04:27)
[2024-07-19] MEDS ORDERED: HYDR-3713 PO (04:27)
[2024-07-19] MEDS ORDERED: SILD100T PO (04:27)
[2024-07-19] MEDS ORDERED: HOME MED LIST COMPLETE! XX SCH (04:30)
[2024-07-19] MEDS ORDERED: DEXTROSE 50% 50ML SYRINGE IV PRN ×2 (05:40→05:50)
[2024-07-19] MEDS ORDERED: MAALOX 30 ML SUSP *UDC PO PRN ×2 (05:40→05:50)
[2024-07-19] MEDS ORDERED: ACETAMINOPHEN 325 MG TAB PO PRN ×2 (05:40→05:50)
[2024-07-19] MEDS ORDERED: MOM 30ML SUSPENSION UDC PO PRN ×2 (05:40→05:50)
[2024-07-19] MEDS ORDERED: INSULIN LISPRO (NovoLOG) PER UNIT SC SCH ×2 (05:40→21:00)
[2024-07-19] MEDS ORDERED: GLUCOSE 4 GM CHEW PO PRN ×2 (05:40→05:50)
[2024-07-19] MEDS ORDERED: GLUCAGON INJ 1MG VIAL SC PRN ×2 (05:40→05:50)
[2024-07-19] MEDS ORDERED: ISOVUE-370 76% 100ML VIAL As Ordered ONE (05:54)
[2024-07-19] MEDS: INSULIN LISPRO (NovoLOG) PER UNIT SC SCH ×3 (06:00→20:41)
[2024-07-19 06:54] LABS: INR 1.03; PARTIAL THROMBOPLASTIN TIME 30.5 SECONDS (24.8-34.2); PROTHROMBIN TIME 13.8 SECONDS (12.5-14.5)
[2024-07-19 07:14] LABS: ALBUMIN 3.4 G/DL (3.2-5.2); BILIRUBIN,DIRECT 0.2 MG/DL (<0.4); BILIRUBIN,TOTAL 0.6 MG/DL (0.3-1.2); MAGNESIUM LEVEL 1.8 MG/DL (1.8-2.4)
[2024-07-19] MEDS: HEPARIN SOD (PORCINE) 5000UNITS/ML 1ML VIAL/SYRINGE SQ SCH (07:20)
[2024-07-19 07:22] LABS: HEMOGLOBIN A1c 9.2 % (4.0-6.0)
[2024-07-19 07:26] LABS: PROCALCITONIN 0.09 ng/ml
[2024-07-19 07:30] LABS: URIC ACID 5.7 MG/DL (3.7-9.2)
[2024-07-19] MEDS ORDERED: DOCUSATE SODIUM 100MG CAPSULE PO SCH (09:00)
[2024-07-19] MEDS: DOCUSATE SODIUM 100MG CAPSULE PO SCH (09:18)
[2024-07-19] MEDS: LIDOCAINE 5% (LIDODERM) PATCH TD SCH (09:18)
[2024-07-19] MEDS: FLUCONAZOLE 50MG TABLET PO SCH (09:18)
[2024-07-19] MEDS: PERCOCET 5MG/325MG TAB PO ONE (09:19)
[2024-07-19] MEDS: NYSTATIN 100,000 UNITS/GM TOPICAL PWD 15GM TOP SCH (10:01)
[2024-07-19] MEDS: HYDROMORPHONE HCL 0.5 MG/ 0.5 ML SYRINGE IV PRN (13:29)
[2024-07-19 15:48] VITALS: BP 142/96
[2024-07-19] MEDS: CYCLOBENZAPRINE 10MG TABLET PO PRN (15:55)
[2024-07-19] MEDS ORDERED: ALPRAZolam 0.25 MG TAB PO PRN (16:50)
[2024-07-19] MEDS: ALPRAZolam 0.5 MG TAB PO PRN (18:14)
[2024-07-19 20:10] VITALS: BP 146/96; TEMP 98.1; O2SAT 93
[2024-07-19] MEDS: ATORVASTATIN 10 MG TAB PO SCH (20:57)
[2024-07-20 04:29] VITALS: BP 151/97; TEMP 97.5; O2SAT 90
[2024-07-20] MEDS: KETOROLAC 30 MG/ML 1ML VIAL IV PRN (05:07)
[2024-07-20 06:36] LABS: HEMATOCRIT 50.8 % (42.0-52.0); HEMOGLOBIN 16.6 g/dl (13.5-17.5); MEAN CORPUSCULAR HEMOGLOBIN 30.4 pg (27.0-33.0); MEAN CORPUSCULAR HGB CONC 32.7 g/dl (32.0-36.5); PLATELET COUNT, AUTOMATED 221 10^3/uL (150-450); RED BLOOD COUNT 5.46 10^6/uL (4.30-6.10); WHITE BLOOD COUNT 7.9 10^3/uL (4.0-10.0)
[2024-07-20 07:01] LABS: ALBUMIN 3.7 G/DL (3.2-5.2); ALKALINE PHOSPHATASE 74 U/L (40-129); ALT/SGPT 48 U/L (7.0-40); AST/SGOT 20 U/L (<34); BILIRUBIN,TOTAL 0.6 MG/DL (0.3-1.2); BLOOD UREA NITROGEN 16 MG/DL (9-23); CALCIUM LEVEL 9.1 MG/DL (8.5-10.1); CARBON DIOXIDE LEVEL 28 MMOL/L (20-31); CHLORIDE LEVEL 104 MMOL/L (98-107); CREATININE FOR GFR 0.82 MG/DL (0.70-1.30); GLOMERULAR FILTRATION RATE > 60.0 (>56); GLUCOSE, FASTING 143 MG/DL (60-100); MAGNESIUM LEVEL 1.8 MG/DL (1.8-2.4); POTASSIUM SERUM 4.3 MMOL/L (3.5-5.1); SODIUM LEVEL 139 MMOL/L (136-145); TOTAL PROTEIN 7.3 G/DL (5.7-8.2)
[2024-07-20 08:28] VITALS: BP 161/103
[2024-07-20] MEDS: methocarbamoL 500 MG TAB PO PRN (08:31)
[2024-07-20 11:03] LABS: URIC ACID 5.4 MG/DL (3.7-9.2)
[2024-07-20 12:00] VITALS: BP 144/81; TEMP 97.5; O2SAT 90
[2024-07-20] MEDS: methylPREDNISolone 125MG 2ML VIAL IV ONE (12:12)
[2024-07-20 15:09] LABS: CRYSTALS, BODY FLUID NONE SEEN (NONE SEEN); SOURCE, BODY FLUID CRYSTALS LFT KNEE
[2024-07-20 19:34] VITALS: BP 142/82; TEMP 97.9; O2SAT 93
[2024-07-21] MEDS: RAMELTEON 8 MG TAB (ROZEREM) PO ONE (00:45)
[2024-07-21 04:20] VITALS: BP 157/97; TEMP 97.3; O2SAT 94
[2024-07-21] MEDS: methylPREDNISolone 40MG 1ML VIAL IV SCH (08:17)
[2024-07-21 08:54] LABS: BASO % 0.2 % (0.0-1.0); EOS % 0.3 % (0.0-3.0); HEMATOCRIT 50.4 % (42.0-52.0); HEMOGLOBIN 16.5 g/dl (13.5-17.5); LYMPH # 2.5 10^3/uL (1.5-5.0); LYMPH % 21.8 % (24.0-44.0); MEAN CORPUSCULAR HEMOGLOBIN 30.2 pg (27.0-33.0); MEAN CORPUSCULAR HGB CONC 32.7 g/dl (32.0-36.5); MEAN CORPUSCULAR VOLUME 92.1 fl (80.0-96.0); MONO # 0.9 10^3/uL (0.0-0.8); MONO % 7.6 % (2.0-8.0); NEUTROPHILS # 8.2 10^3/uL (1.5-8.5); NEUTROPHILS % 69.8 % (36.0-66.0); PLATELET COUNT, AUTOMATED 235 10^3/uL (150-450); RED BLOOD COUNT 5.47 10^6/uL (4.30-6.10); WHITE BLOOD COUNT 11.7 10^3/uL (4.0-10.0)
[2024-07-21 09:18] LABS: BLOOD UREA NITROGEN 19 MG/DL (9-23); C REACTIVE PROTEIN QUANTITATIV 0.78 MG/DL (<1.0); CALCIUM LEVEL 9.2 MG/DL (8.5-10.1); CARBON DIOXIDE LEVEL 31 MMOL/L (20-31); CHLORIDE LEVEL 104 MMOL/L (98-107); CREATININE FOR GFR 0.71 MG/DL (0.70-1.30); GLOMERULAR FILTRATION RATE > 60.0 (>56); GLUCOSE, FASTING 199 MG/DL (60-100); POTASSIUM SERUM 4.2 MMOL/L (3.5-5.1); SODIUM LEVEL 142 MMOL/L (136-145)
[2024-07-21 09:30] LABS: PROCALCITONIN 0.14 ng/ml
[2024-07-21] MEDS: DICLOFENAC EPOLAMINE 1.3% PATCH TOP SCH (10:43)
[2024-07-21 12:00] VITALS: BP 178/93; TEMP 97.9; O2SAT 93
[2024-07-21] MEDS: METOPROLOL TART 25 MG TABLET PO ONE (12:32)
[2024-07-21 13:15] VITALS: BP 151/88
[2024-07-21] MEDS ORDERED: PERCOCET 5MG/325MG TAB PO PRN (16:55)
[2024-07-21] MEDS: PERCOCET 5MG/325MG TAB PO PRN (18:43)
[2024-07-21 20:00] VITALS: BP 162/97; TEMP 97.5; O2SAT 92
[2024-07-21] MEDS: LEVEMIR (INSULIN DETEMIR) 1 UNITS/0.01ML SC SCH (20:48)
[2024-07-22 04:23] VITALS: BP 162/98; TEMP 97.7; O2SAT 90
[2024-07-22 06:38] LABS: BASO % 0.4 % (0.0-1.0); EOS # 0.1 10^3/uL (0.0-0.5); HEMATOCRIT 50.5 % (42.0-52.0); HEMATOCRIT 51.5 % (42.0-52.0); HEMOGLOBIN 16.5 g/dl (13.5-17.5); LYMPH # 3.3 10^3/uL (1.5-5.0); LYMPH % 33.5 % (24.0-44.0); MEAN CORPUSCULAR HEMOGLOBIN 30.2 pg (27.0-33.0); MEAN CORPUSCULAR HEMOGLOBIN 30.7 pg (27.0-33.0); MEAN CORPUSCULAR HGB CONC 32.7 g/dl (32.0-36.5); MEAN CORPUSCULAR VOLUME 93.9 fl (80.0-96.0); MEAN CORPUSCULAR VOLUME 94.3 fl (80.0-96.0); MONO # 0.7 10^3/uL (0.0-0.8); MONO % 7.6 % (2.0-8.0); NEUTROPHILS # 5.6 10^3/uL (1.5-8.5); NEUTROPHILS % 57.2 % (36.0-66.0); PLATELET COUNT, AUTOMATED 218 10^3/uL (150-450); PLATELET COUNT, AUTOMATED 230 10^3/uL (150-450); RED BLOOD COUNT 5.38 10^6/uL (4.30-6.10); RED BLOOD COUNT 5.46 10^6/uL (4.30-6.10); WHITE BLOOD COUNT 10.4 10^3/uL (4.0-10.0); WHITE BLOOD COUNT 9.8 10^3/uL (4.0-10.0)
[2024-07-22 06:50] LABS: BLOOD UREA NITROGEN 24 MG/DL (9-23); CALCIUM LEVEL 9.2 MG/DL (8.5-10.1); CARBON DIOXIDE LEVEL 32 MMOL/L (20-31); CHLORIDE LEVEL 104 MMOL/L (98-107); CREATININE FOR GFR 0.81 MG/DL (0.70-1.30); GLOMERULAR FILTRATION RATE > 60.0 (>56); GLUCOSE, FASTING 149 MG/DL (60-100); POTASSIUM SERUM 4.5 MMOL/L (3.5-5.1); SODIUM LEVEL 143 MMOL/L (136-145)
[2024-07-22 08:05] VITALS: BP 166/84
[2024-07-22] MEDS: LOSARTAN 50MG TABLET PO SCH (08:05)
[2024-07-22] MEDS: GABAPENTIN 100 MG CAP PO SCH (09:24)
[2024-07-22] MEDS: ALPRAZolam 0.5 MG TAB PO ONE (09:24)
[2024-07-22 12:00] VITALS: BP 163/96; TEMP 97.7; O2SAT 91
[2024-07-22 21:30] VITALS: BP 138/80; TEMP 97.7; O2SAT 94
[2024-07-22] MEDS: NICOTINE 14 MG/24 HR TRANSDERMAL TD SCH (21:42)
[2024-07-23 04:57] VITALS: BP 143/83; TEMP 97.5; O2SAT 96
[2024-07-23 06:15] VITALS: O2SAT 97
[2024-07-23] MEDS ORDERED: DICL1PAT6 TOP (10:01)
[2024-07-23] MEDS ORDERED: OXYC1TAB23 PO (10:01)
[2024-07-23] MEDS ORDERED: NYST1POW3 TOP (10:01)
[2024-07-23] MEDS ORDERED: LOSA-528 PO (10:01)
[2024-07-23] MEDS ORDERED: BLOOKIT21 XX (10:01)
[2024-07-23] MEDS ORDERED: NEUR100C PO (10:01)
[2024-07-23] MEDS ORDERED: LANTINJ4 SC (10:01)
[2024-07-23] MEDS ORDERED: JANU100T PO (10:01)
[2024-07-23] MEDS ORDERED: GLUC1TES2 XX (10:01)
[2024-07-23] MEDS ORDERED: PEN-308 SC (10:01)
[2024-07-23] MEDS ORDERED: LANC30MI XX (10:01)
[2024-07-23] MEDS ORDERED: ALCOPAD25 TOP (10:01)
[2024-07-23] MEDS ORDERED: PROT20TA11 PO (10:09)
[2024-07-23] MEDS ORDERED: PRED10TA2 PO (10:09)
== END 2024-07-23 13:40 | disposition home or self-care (01) | DRG 351 ==
LOC: M ED 19:16 → EDBD 19:16 → M ED INP 19:17 → M MS5PR 07-19 15:30 → OBSVTOIN 07-20 12:59
PROVIDERS: ADMIT Family Medicine; ATTEND Internal Medicine
PROC: 0S9D3ZX Drainage of Left Knee Joint, Percutaneous Approach, Diagnostic (ICD-10-PCS; principal; 2024-07-20)
DX: M25.462 Effusion, left knee (principal); E66.01 Morbid (severe) obesity due to excess calories; I10 Essential (primary) hypertension; N49.2 Inflammatory disorders of scrotum; M47.896 Other spondylosis, lumbar region; J45.909 Unspecified asthma, uncomplicated; E11.9 Type 2 diabetes mellitus without complications; N52.9 Male erectile dysfunction, unspecified; F17.210 Nicotine dependence, cigarettes, uncomplicated; R26.89 Other abnormalities of gait and mobility; M17.12 Unilateral primary osteoarthritis, left knee; E78.5 Hyperlipidemia, unspecified; L30.4 Erythema intertrigo; Z79.84 Long term (current) use of oral hypoglycemic drugs; Z79.899 Other long term (current) drug therapy

== ENCOUNTER 2024-07-24 17:55 | Emergency (ER) | payer OTHER ==
[~2024-07-24] VITALS: Ht 190.5 cm; Wt 129.1 kg
[~2024-07-24 17:55] MED LIST changes: +ALCOPAD25 TOP; +ATOR1TAB19 PO; +BLOOKIT21 XX; +CYCL-707 PO; +DICL1PAT6 TOP; +DICL25TA11 PO; +GLUC1TES2 XX; +HYDR-3713 PO; +JANU100T PO; +LANC30MI XX; +LANTINJ4 SC; +LOSA-528 PO; +METF-838 PO; +NEUR100C PO; +NYST1POW3 TOP; +OXYC1TAB23 PO; +PEN-308 SC; +PRED10TA2 PO; +PROT20TA11 PO; +SILD100T PO
[2024-07-24 18:10] VITALS: BP 161/96; TEMP 97.5; O2SAT 91
== END 2024-07-24 22:23 | disposition left against medical advice (07) ==
LOC: EDBD 17:55 → M ED 17:55
DX: Z53.21 Procedure and treatment not carried out due to patient leaving prior to being seen by health care provider (principal)

== ENCOUNTER → 2024-08-17 | Outpatient (CLI) | payer OTHER | LOC: M SOG 08:25 | PROVIDERS: ATTEND Physician Assistant | DX: M25.552 Pain in left hip (principal); M25.562 Pain in left knee; M16.12 Unilateral primary osteoarthritis, left hip ==

== ENCOUNTER → 2024-09-03 | Outpatient (CLI) | payer OTHER | LOC: M PLAIMG 09:41 | PROVIDERS: ATTEND Physician Assistant | DX: S80.02XD Contusion of left knee, subsequent encounter (principal) ==

== ENCOUNTER → 2024-09-24 | Outpatient (RCR) | payer OTHER | LOC: M PT 08-30 12:44 | PROVIDERS: ATTEND Physician Assistant | DX: M25.562 Pain in left knee (principal); M25.552 Pain in left hip; M54.50 Low back pain, unspecified ==

== ENCOUNTER 2024-09-30 12:23 | Outpatient (RCR) | payer OTHER | END 2024-10-25 | LOC: M PT 12:23 | PROVIDERS: ATTEND Physician Assistant | DX: M25.562 Pain in left knee (principal); M25.552 Pain in left hip; M54.50 Low back pain, unspecified ==

== ENCOUNTER → 2025-02-04 | Outpatient (REF) | payer OTHER ==
[~2025-02-04] MED LIST changes: +ACET500C10 PO; +DORZ2SOL5; +GABA-1171 PO; +LOSA50TA28 PO; +PANT20TA6 PO; +[UNRECOGNIZED DRUG - OTHER]
[2025-02-04 18:08] LABS: CALCIUM LEVEL 9.2 MG/DL (8.5-10.1); CARBON DIOXIDE LEVEL 28 MMOL/L (20-31); CHLORIDE LEVEL 102 MMOL/L (98-107); CREATININE FOR GFR 0.79 MG/DL (0.70-1.30); GLOMERULAR FILTRATION RATE > 90.0 (>56); MAGNESIUM LEVEL 1.8 MG/DL (1.8-2.4); POTASSIUM SERUM 4.4 MMOL/L (3.5-5.1); SODIUM LEVEL 141 MMOL/L (136-145)
== END ==
LOC: M LAB REF 16:59
PROVIDERS: ATTEND Nurse Practitioner Family
DX: L97.801 Non-pressure chronic ulcer of other part of unspecified lower leg limited to breakdown of skin (principal); I87.2 Venous insufficiency (chronic) (peripheral)

== ENCOUNTER → 2025-03-16 | Outpatient (CLI) | payer OTHER | LOC: M RAD 11:34 | PROVIDERS: ATTEND Physician Assistant | DX: I87.313 Chronic venous hypertension (idiopathic) with ulcer of bilateral lower extremity (principal); L97.922 Non-pressure chronic ulcer of unspecified part of left lower leg with fat layer exposed; L97.912 Non-pressure chronic ulcer of unspecified part of right lower leg with fat layer exposed ==

== ENCOUNTER → 2025-07-14 | Outpatient (CLI) | payer OTHER ==
[~2025-07-14] MED LIST changes: -IBUP-1022 PO; +IBUP600T42 PO
== END ==
LOC: M RAD 10:56
PROVIDERS: ATTEND Nurse Practitioner Family
DX: Z12.2 Encounter for screening for malignant neoplasm of respiratory organs (principal); R91.8 Other nonspecific abnormal finding of lung field; F17.210 Nicotine dependence, cigarettes, uncomplicated